=== PATIENT | female | born 1980 | race Caucasian/White ===

== ENCOUNTER 2017-09-12 22:20 | Inpatient (IN) | END 2017-09-15 13:50 | disposition home or self-care (01) | DRG 775 ==

== ENCOUNTER 2018-07-03 12:59 | Emergency (ER) | payer MEDICAID ==
[~2018-07-03] VITALS: Ht 160 cm; Wt 66.8 kg
[~2018-07-03 12:59] MED LIST: PREN-93 PO
[2018-07-03 13:17] VITALS: BP 109/66; PULSE 87; RESP 18; Ht 160 cm; Wt 66.8 kg
--- NOTE | 2018-07-03 16:53 | ERD ---
ER Documentation Chief Complaint Chief Complaint sent from ob clinic-no heart tones heard today HPI 37yo female sent from OB clinic for lack of heart tones on ultrasound period today. She denies any vaginal bleeding or pelvic pain. She is about 10 weeks . She is A0. Denies any past medical history ROS All systems reviewed and are negative except as per history of present illness. Medications Home Meds Reported Medications Vit No.124/Iron/FA ( Vitamin Tablet) 1 Each Tablet, 1 EACH PO, TAB 09/12/17 Allergies Allergies: Coded Allergies: No Known Allergy (Unverified , 09/12/17) Physical Exam Vitals Vital Signs Date Temp Pulse Resp B/P (MAP) Pulse Ox O2 O2 Flow FiO2 Time Delivery Rate 07/03/18 98.9 87 18 109/66 99 13:17 (80) Physical Exam Const: No acute distress Resp: Clear to auscultation bilaterally Cardio: Regular rate and rhythm, no murmurs Abd: Soft, non tender, non distended. Normal bowel sounds Skin: No petechiae or rashes Back: No midline or flank tenderness Ext: No cyanosis, or edema Neur: Awake and alert Psych: Normal Mood and Affect Result Diagram: 07/03/18 1627 Results 24 hrs Laboratory Tests Test 07/03/18 15:25 07/03/18 16:27 Urine Color STRAW Urine Clarity CLEAR Urine pH 5.0 Urine Specific [place] 1.009 Urine Ketones NEGATIVE mg/dL Urine Nitrite NEGATIVE mg/dL Urine Bilirubin NEGATIVE mg/dL Urine Urobilinogen NEGATIVE mg/dL Urine Leukocyte Esterase NEGATIVE Jamaal/ul Urine Microscopic RBC 0 /HPF Urine Microscopic WBC 0 /HPF Urine Bacteria FEW /HPF Urine Hemoglobin 1+ mg/dL Urine Glucose NEGATIVE mg/dL Urine Total Protein NEGATIVE mg/dl Beta HCG, Quantitative 08691.0 mIU/ml White Blood Count 7.1 10^3/ul Red Blood Count 5.14 10^6/ul Hemoglobin 13.7 g/dl Hematocrit 43.2 % Mean Corpuscular Volume 84.0 fl Mean Corpuscular Hemoglobin 26.7 pg Mean Corpuscular Hemoglobin Concent 31.7 g/dl Red Cell Distribution Width 14.9 % Platelet Count 413 10^3/UL Mean Platelet Volume 8.7 fl Immature Granulocytes % 0.300 % Neutrophils % 66.3 % Lymphocytes % 19.3 % Monocytes % 7.1 % Eosinophils % 6.2 % Basophils % 0.8 % Nucleated Red Blood Cells % 0.0 /100WBC Immature Granulocytes # 0.020 10^3/ul Neutrophils # 4.7 10^3/ul Lymphocytes # 1.4 10^3/ul Monocytes # 0.5 10^3/ul Eosinophils # 0.4 10^3/ul Basophils # 0.1 10^3/ul Nucleated Red Blood Cells # 0.0 10^3/ul Procedures/MDM Medical Decision Making: Patient appeared well on physical exam. CBC: no e/o of systemic infection or severe anemia beta HCG level 15,497 UA negative for infection OB ultrasound shows lack of heart tones consistent with demise Patient advised to she will need to return to the ER in 48 hours for repeat beta-hCG level. Advised that she would need to follow-up with [facility]. Patient advised to follow up with PCP in 1-2 days. Patient advised to return to ED for new or worsening symptoms. Patient stable on discharge from the ED. Disclaimer: Inadvertent spelling and grammatical errors are likely due to EHR/dictation software use and do not reflect on the overall quality of patient care. Also, please note that the electronic time recorded on this note does not necessarily reflect the actual time of the patient encounter. Departure Diagnosis: Primary Impression: demise Condition: Fair Patient Instructions: Miscarriage Referrals: [facility] YOU HAVE RECEIVED A MEDICAL SCREENING EXAM AND THE RESULTS INDICATE THAT YOU DO NOT HAVE A CONDITION THAT REQUIRES URGENT TREATMENT IN THE EMERGENCY DEPARTMENT. FURTHER EVALUATION AND TREATMENT OF YOUR CONDITION CAN WAIT UNTIL YOU ARE SEEN IN YOUR DOCTORS OFFICE WITHIN THE NEXT 1-2 DAYS. IT IS YOUR RESPONSIBILITY TO MAKE AN APPOINTMENT FOR FOLOW-UP CARE. IF YOU HAVE A PRIMARY DOCTOR --you should call your primary doctor and schedule an appointment IF YOU DO NOT HAVE A PRIMARY DOCTOR YOU CAN CALL OUR PHYSICIAN REFERRAL HOTLINE AT IF YOU CAN NOT AFFORD TO SEE A PHYSICIAN YOU CAN CHOSE FROM THE FOLLOWING [facility] CL[facility] [address] [facility] [address] [facility] [address] [facility] [address] [facility]. [facility] [address] [facility]. [facility] [address] Additional Instructions: Llame al doctor MAANA y emeli kraig CAITLYN PARA DENTRO DE 1-2 LYLES.Dgale a la secretaria que nosotros le instruimos hacer esta caitlyn.Avise o llame si jorge condicin se empeora antes de la caitlyn. Regresa aqui si peor o no mejor. Return to ER in 48 hours for repeat beta HCG. NANCY BOLIVAR DO Jul 03, 2018 16:53
== END 2018-07-03 17:38 | disposition home or self-care (01) ==
LOC: FTE 12:59
DX: O02.1 Missed abortion (principal)
CPT/HCPCS: 36415; 76801; 81001; 84702; 85025; 86900; 86901; Z7502

== ENCOUNTER 2018-11-16 05:28 | Emergency (ER) | payer MEDICAID ==
[~2018-11-16] VITALS: Ht 144.8 cm; Wt 71.2 kg
[2018-11-16 05:30] VITALS: BP 112/58; PULSE 94; RESP 20; Ht 144.8 cm; Wt 71.2 kg
--- NOTE | 2018-11-16 06:13 | ERD ---
ER Documentation Chief Complaint Chief Complaint Pt reports LUQ pain x 3 days with nausea HPI Patient is a 37 years old female presenting to the clinic for LUQ pain radiating to left mid pain x 1 week. Patient reports of upset stomach like sensation and admits to 3 watery diarrhea episode yesterday. Denies taking any OTC medication, fever, chills, night sweats, hematochezia, melena, emesis. Patient rates her pain 11/14 and admits to nausea. Denies dysuria, urinary urgency. Patient denies all ROS and admits to recent loss 4 months ago. ROS All systems reviewed and are negative except as per history of present illness. Medications Home Meds Active Scripts Ondansetron Hcl* (Zofran*) 4 Mg Tablet, 4 MG PO Q8H PRN for NAUSEA AND/OR VOMITING, #30 TAB Prov:LENNY DELA CRUZ PA-C 11/16/18 Acetaminophen* (Tylophen*) 500 Mg Capsule, 1 CAP PO Q6H PRN for PAIN AND OR ELEVATED TEMP, #20 CAP Prov:LENNY DELA CRUZ PA-C 11/16/18 Reported Medications Vit No.124/Iron/FA ( Vitamin Tablet) 1 Each Tablet, 1 EACH PO, TAB 09/12/17 Allergies Allergies: Coded Allergies: No Known Allergy (Unverified , 11/16/18) PMhx/Soc Medical and Surgical Hx: pt denies Medical Hx, pt denies Surgical Hx History of Surgery: No Anesthesia Reaction: No Hx Neurological Disorder: No Hx Respiratory Disorders: No Hx Cardiac Disorders: No Hx Psychiatric Problems: No Hx Miscellaneous Medical Probl: No Hx Alcohol Use: No Hx Substance Use: No Hx Tobacco Use: No Smoking Status: Never smoker FmHx Family History: No diabetes, No coronary disease, No other Physical Exam Vitals Vital Signs Date Temp Pulse Resp B/P (MAP) Pulse Ox O2 O2 Flow FiO2 Time Delivery Rate 11/16/18 98.9 94 20 112/58 100 05:30 (76) Physical Exam Const: No acute distress Head: Atraumatic Eyes: Normal Conjunctiva Resp: Clear to auscultation bilaterally. No rales, rhonchi, wheezing. Cardio: Regular rate and rhythm, no murmurs Abd: Soft, non tender, non distended. Normal bowel sounds. Negative Hearn sign, Rovsing sign, McBurney's point tenderness, guarding, rebound tenderness, Valenzuela Mora sign, Massillon sign. Skin: No petechiae or rashes Back: No midline or flank tenderness. Left-sided CVAT. Neur: Awake and alert Psych: Normal Mood and Affect Result Diagram: 11/16/1829 11/16/18 0629 Results 24 hrs Laboratory Tests Test 11/16/18 06:29 11/16/18 06:39 White Blood Count 7.3 10^3/ul Red Blood Count 5.50 10^6/ul Hemoglobin 13.1 g/dl Hematocrit 41.8 % Mean Corpuscular Volume 76.0 fl Mean Corpuscular Hemoglobin 23.8 pg Mean Corpuscular Hemoglobin Concent 31.3 g/dl Red Cell Distribution Width 16.2 % Platelet Count 421 10^3/UL Mean Platelet Volume 8.6 fl Immature Granulocytes % 0.300 % Neutrophils % 53.9 % Lymphocytes % 27.6 % Monocytes % 7.8 % Eosinophils % 9.7 % Basophils % 0.7 % Nucleated Red Blood Cells % 0.0 /100WBC Immature Granulocytes # 0.020 10^3/ul Neutrophils # 4.0 10^3/ul Lymphocytes # 2.0 10^3/ul Monocytes # 0.6 10^3/ul Eosinophils # 0.7 10^3/ul Basophils # 0.1 10^3/ul Nucleated Red Blood Cells # 0.0 10^3/ul Urine Color YELLOW Urine Clarity CLEAR Urine pH 5.0 Urine Specific [place] 1.021 Urine Ketones NEGATIVE mg/dL Urine Nitrite NEGATIVE mg/dL Urine Bilirubin NEGATIVE mg/dL Urine Urobilinogen NEGATIVE mg/dL Urine Leukocyte Esterase NEGATIVE Jamaal/ul Urine Microscopic RBC 1 /HPF Urine Microscopic WBC 0 /HPF Urine Bacteria FEW /HPF Urine Mucus FEW /HPF Urine Hemoglobin 1+ mg/dL Urine Glucose NEGATIVE mg/dL Urine Total Protein NEGATIVE mg/dl Sodium Level 143 mmol/L Potassium Level 3.6 mmol/L Chloride Level 107 mmol/L Carbon Dioxide Level 25 mmol/L Anion Gap 11 Blood Urea Nitrogen 8 mg/dl Creatinine 0.55 mg/dl Est Glomerular Filtrat Rate mL/min > 60 mL/min Glucose Level 117 mg/dl Calcium Level 8.9 mg/dl Total Bilirubin 0.3 mg/dl Direct Bilirubin 0.00 mg/dl Indirect Bilirubin 0.3 mg/dl Aspartate Amino Transf (AST/SGOT) 33 IU/L Alanine Aminotransferase (ALT/SGPT) 32 IU/L Alkaline Phosphatase 117 IU/L Total Protein 8.3 g/dl Albumin 4.4 g/dl Globulin 3.90 g/dl Albumin/Globulin Ratio 1.12 Lipase 125 U/L POC Beta HCG, Qualitative NEGATIVE Current Medications Medications Dose Sig/Jocy Start Time Status Last (Trade) Ordered Route PRN Stop Time Admin Dose Reason Admin 650 mg ONCE ONCE 11/16/18 DC 11/16/18 Acetaminophen PO 06:30 06:39 (Tylenol 11/16/18 06:31 Tab) Ondansetron 8 mg ONCE STAT 11/16/18 DC 11/16/18 HCl (Zofran ODT 06:16 06:39 Odt) 11/16/18 06:20 40 mg ONCE ONCE 11/16/18 DC 11/16/18 Pantoprazole PO 06:30 06:39 (Protonix 11/16/18 06:31 Tab) Procedures/MDM Patient was seen and evaluated for left upper quadrant pain radiating to left mid back pain. CBC, CMP, lipase, urinalysis are grossly unremarkable. Urine negative. Renal ultrasound revealed Mild right-sided hydronephrosis. Patient was given Tylenol, Zofran, Protonix p.o. in ED. low suspicion for appendicitis, colitis, cholecystitis. Patient is stable and ready for discharge. Follow-up with PCP and urologist for outpatient evaluation. Patient will be discharged with Zofran and Tylenol. Departure Diagnosis: Primary Impression: Abdominal pain Abdominal location: left upper quadrant Qualified Codes: R10.12 - Left upper quadrant pain Additional Impression: Hydronephrosis Hydronephrosis type: unspecified Qualified Codes: N13.30 - Unspecified hydronephrosis Condition: Stable Patient Instructions: Abdominal Pain, Hydronephrosis Adult Referrals: JACKY YE MD, VINOD M MD AYUSTE, BRIAN MD BARSOUM, NOHA MD [facility] Additional Instructions: Paciente aconseja volver a Departamento de urgencias inmediatamente para sntomas nuevos o que empeoran . Paciente aconseja posteriores con el PCP en 2-3 may . Paciente verbaliza la comprehensin y est de acuerdo con el tratamiento y el curso de accin. Si el paciente no tiene ninguna de atencin primaria pueden seguir con [facility] [address] [place] [address] o [facility] [address] [place] [address] LENNY DELA CRUZ PA-C Nov 16, 2018 06:13
[2018-11-16] MEDS ORDERED: ONDANSETRON (ODT) 4 MG TAB ODT STA (06:16)
[2018-11-16] MEDS ORDERED: ACETAMINOPHEN 325 MG TAB PO ONE (06:30)
[2018-11-16] MEDS ORDERED: PANTOPRAZOLE (EC) 40 MG TAB PO ONE (06:30)
[2018-11-16] MEDS ORDERED: ACET500C5 PO (08:23)
[2018-11-16] MEDS ORDERED: ONDA4TAB8 PO (08:23)
== END 2018-11-16 08:29 | disposition home or self-care (01) ==
LOC: E/R 05:28 → FTE 08:29
DX: N13.30 Unspecified hydronephrosis (principal)
CPT/HCPCS: 36415; 76775; 80053; 81001; 81025; 83690; 85025; Z7502; Z7610